=== PATIENT | female | born 1970 | race American Indian/Alaskan Native ===

== ENCOUNTER 2017-10-11 12:43 | Outpatient (CLI) | payer OTHER ==
--- NOTE | 2017-10-12 10:03 | Mammography Report ---
BILATERAL DIGITAL SCREENING MAMMOGRAM with CAD: 10/11/17 12:43:00 CLINICAL: Routine screening. COMPARISON:None available. Her last mammogram was in [place]. FINDINGS: The breasts are heterogeneously dense, which may obscure small masses. No mass, architectural distortion or suspicious calcifications. IMPRESSION: No mammographic evidence of malignancy. BI-RADS CATEGORY: 1 - - Negative RECOMMENDATION: Routine mammographic screening in one year. COMMENT: Patient follow-up letters are generated by our [employer] application.
== END 2017-10-11 12:44 | disposition home or self-care (01) ==
LOC: MAMMO 12:43
PROVIDERS: ATTEND Family Medicine
DX: Z12.31 Encounter for screening mammogram for malignant neoplasm of breast (principal)
CPT/HCPCS: 77067; G0202

== ENCOUNTER 2019-10-17 10:50 | Outpatient (CLI) | payer OTHER ==
--- NOTE | 2019-10-20 14:22 | Mammography Report ---
DIGITAL SCREENING MAMMOGRAM WITH CAD, 10/17/2019 INDICATION: Routine screening mammography. TECHNIQUE: Digital bilateral 2D mammography was obtained in the craniocaudal and mediolateral obliq ue projections. This examination was interpreted with the benefit of Computer-Aided Detection analysi s. COMPARISON: 10/14/2018 and 10/11/2017 FINDINGS: Breast Density: The breasts are heterogeneously dense, which may obscure small masses. Right asymmetries require additional imaging. No architectural distortion or suspicious calcification s of the right breast. There is no evidence of dominant mass, suspicious calcifications or architectu ral distortion in either breast. IMPRESSION: Right asymmetries requiring additional imaging. Recommend recall for right spot compressi on views and right breast ultrasound if needed. Follow up recommendation: Special View: Spot Category 0: Incomplete. Needs additional imaging evaluation and/or prior mammograms for comparison. A "normal" or negative report should not discourage follow up or biopsy of a clinically significant f inding. A written summary of these findings will be mailed to the patient. The patient will be entered into a mammography reporting system which will generate a reminder letter for the patient's next appointmen t at the appropriate interval. The [employer] recommends yearly mammograms starting at age 40 and continuing as l jeff as a woman is in good health. Breast MRI is recommended for women with an approximate 20-25% or greater lifetime risk of breast cancer, including women with a strong family history of breast or ova ang cancer or who have been treated for Hodgkin's disease. Signer Name: Dave Ayoub MD Signed: 10/20/2019 2:17 PM Workstation Name: [id number]
== END 2019-10-17 10:51 | disposition home or self-care (01) ==
LOC: MAMMO 10:50
PROVIDERS: ATTEND Family Medicine
DX: Z12.31 Encounter for screening mammogram for malignant neoplasm of breast (principal)
CPT/HCPCS: 77067

== ENCOUNTER 2021-07-01 13:31 | Emergency (ER) | payer BC, OTHER ==
[2021-07-02 04:09] LABS: Basophils % (Auto) 0.7 % (0.0-1.8); Eosinophils % (Auto) 0.5 % (0.0-4.3); Hematocrit 46.3 % (30.3-42.9); Hemoglobin 15.2 gm/dl (10.1-14.3); Lymphocytes # (Auto) 1.5 K/mm3 (1.2-5.4); Lymphocytes % (Auto) 24.2 % (13.4-35.0); Mean Corpuscular HGB Conc 33 % (30-34); Mean Corpuscular Volume 84 fl (79-97); Monocytes # (Auto) 0.5 K/mm3 (0.0-0.8); Monocytes % (Auto) 7.8 % (0.0-7.3); Platelet Count 368 K/mm3 (140-440); Red Blood Count 5.51 M/mm3 (3.65-5.03); Red Cell Distribution Width 16.2 % (13.2-15.2)
--- NOTE | 2021-07-02 04:33 | Cat Scan Report ---
CT head without contrast INDICATION : HEAD INJURY- DIZZINESS. TECHNIQUE: Axial imaging performed from the skull apex through the skull base without the use of con trast. All CT scans at this location are performed using CT dose reduction for ALARA by means of aut omated exposure control. COMPARISON: None FINDINGS: Parenchyma: No mass, stroke or hemorrhage. Ventricles: Ventricles are normal in size and appear symmetric. Soft tissues: Soft tissues including the orbits appear normal. Bones: No acute osseous abnormality. Sinuses: Sinuses and mastoid air cells are clear. IMPRESSION: No acute abnormality. Signer Name: Davion Mendoza MD Signed: 07/02/2021 4:29 AM Workstation Name: [id number]
--- NOTE | 2021-07-02 04:34 | XRay Report ---
CHEST 1 VIEW 07/02/2021 4:19 AM INDICATION / CLINICAL INFORMATION: Dizziness. COMPARISON: None available. FINDINGS: SUPPORT DEVICES: None. HEART / MEDIASTINUM: No significant abnormality. LUNGS / PLEURA: No significant pulmonary or pleural abnormality. No pneumothorax. ADDITIONAL FINDINGS: No significant additional findings. IMPRESSION: No acute abnormality. Signer Name: Davion Mendoza MD Signed: 07/02/2021 4:29 AM Workstation Name: [id number]
[2021-07-02 04:35] LABS: Alanine Aminotransferase 23 units/L (7-56); Albumin 4.5 g/dL (3.9-5); BUN/Creatinine Ratio 25; Blood Urea Nitrogen 20 mg/dL (7-17); Hemolysis Index 43
--- NOTE | 2021-07-02 04:49 | Emergency Department Report ---
ED General Adult HPI - General Chief complaint: Dizziness Stated complaint: dizziness, headache, chest pain Source: patient Mode of arrival: Ambulatory Limitations: No Limitations - History of Present Illness Initial comments: Patient is a 51-year-old -[place] female with a history of hypertension and who is currently on lisinopril HCTZ 20-25 mg daily, amlodipine 10 mg daily and furosemide 20 mg daily presents to the ED with complaint of persistent lightheadedness and a near syncopal episode intermittently for the last 2 weeks, worse in the last 2 days. Patient states that she has been taking these medications on instruction from her primary care physician and that her blood pressure had at times been so low causing her to feel lightheaded and almost having syncope. Patient states that her latest episode occurred about 3 days ago but states that in the last 2 days she has been feeling lightheaded despite taking these medications. Patient denies chest pain, seizures, syncope, dizziness, fever, chills, cough, palpitations, abdominal pain, muscle spasms, n ausea and vomiting or diarrhea and cough or headache. MD Complaint: Lightheadedness, near syncopal episode, low blood pressure -: Sudden, days(s) (2) Location: head Radiation: non-radiation Severity scale (0 -10): 0 Consistency: intermittent Improves with: none Worsens with: movement Associated Symptoms: denies other symptoms, other (Lightheadedness and near syncope). denies: confusion, chest pain, cough, diaphoresis, fever/chills, headaches, loss of appetite, malaise, nausea/vomiting, rash, seizure, shortness of breath, syncope, weakness Treatments Prior to Arrival: none - Related Data Allergies Allergy/AdvReac Type Severity Reaction Status Date / Time No Known Allergies Allergy Unverified 10/11/17 12:43 ED Review of Systems ROS: Stated complaint: dizziness, headache, chest pain Other details as noted in HPI Constitutional: malaise. denies: chills, fever Eyes: denies: eye pain, eye discharge, vision change ENT: denies: ear pain, throat pain Respiratory: denies: cough, shortness of breath, wheezing Cardiovascular: other (Near syncope). denies: chest pain, palpitations Endocrine: no symptoms reported Gastrointestinal: denies: abdominal pain, nausea, diarrhea Genitourinary: denies: urgency, dysuria, discharge Musculoskeletal: denies: back pain, joint swelling, arthralgia Skin: denies: rash, lesions Neurological: other (Lightheadedness). denies: headache, weakness, paresthesias Psychiatric: denies: anxiety, depression Hematological/Lymphatic: denies: easy bleeding, easy bruising ED Past Medical Hx - Past Medical History Previous Medical History?: Yes Hx Hypertension: Yes ED Physical Exam - General Limitations: No Limitations General appearance: alert, in no apparent distress - Head Head exam: Present: atraumatic, normocephalic, normal inspection - Eye Eye exam: Present: normal appearance, PERRL, EOMI Pupils: Present: normal accommodation - ENT ENT exam: Present: normal exam, normal orophraynx, mucous membranes moist, TM's normal bilaterally, normal external ear exam - Neck Neck exam: Present: normal inspection, full ROM - Respiratory Respiratory exam: Present: normal lung sounds bilaterally. Absent: respiratory distress, wheezes, rales, stridor, chest wall tenderness, accessory muscle use, decreased breath sounds, prolonged expiratory - Cardiovascular Cardiovascular Exam: Present: regular rate, normal rhythm, normal heart sounds. Absent: systolic murmur, diastolic murmur, rubs, gallop - GI/Abdominal GI/Abdominal exam: Present: soft, normal bowel sounds. Absent: tenderness, guarding, hyperactive bowel sounds, hypoactive bowel sounds, organomegaly - Extremities Exam Extremities exam: Present: normal inspection, full ROM, normal capillary refill - Back Exam Back exam: Present: normal inspection, full ROM. Absent: tenderness, CVA tenderness (R), CVA tenderness (L), muscle spasm, paraspinal tenderness, vertebral tenderness - Neurological Exam Neurological exam: Present: alert, oriented X3, CN II-XII intact, normal gait, reflexes normal - Psychiatric Psychiatric exam: Present: normal affect, normal mood - Skin Skin exam: Present: warm, dry, intact, normal color. Absent: rash ED Course Vital Signs 07/01/21 14:13 Temperature 98.1 F Pulse Rate 97 H Respiratory 18 Rate Blood Pressure 117/73 O2 Sat by Pulse 96 Oximetry ED Medical Decision Making - Lab Data Result diagrams: 07/02/21 03:35 07/02/21 03:35 - EKG Data EKG shows normal: sinus rhythm Rate: normal - EKG Data Interpretation: normal EKG 07/02/21 05:20 The EKG shows normal sinus rhythm with a ventricular rate of [address] or T wave abnormalities - Radiology Data Radiology results: report reviewed, image reviewed [facility] [address] [place] [address] Cat Scan Report Signed Patient: ANAIS ALVAREZ MR#: [id number] : 1970 Acct:[id number] Age/Sex: 51 / F ADM Date: 07/01/21 Loc: ED Attending Dr: Ordering Physician: CYRUS HILARIO Date of Service: 07/02/21 Procedure(s): CT head/brain wo con Accession Number(s): [id number] cc: CYRUS HILARIO CT head without contrast INDICATION : HEAD INJURY- DIZZINESS. TECHNIQUE: Axial imaging performed from the skull apex through the skull base without the use of contrast. All CT scans at this location are performed using CT dose reduction for ALARA by means of automated exposure control. COMPARISON: None FINDINGS: Parenchyma: No mass, stroke or hemorrhage. Ventricles: Ventricles are normal in size and appear symmetric. Soft tissues: Soft tissues including the orbits appear normal. Bones: No acute osseous abnormality. Sinuses: Sinuses and mastoid air cells are clear. IMPRESSION: No acute abnormality. Signer Name: Davion Mendoza MD Signed: 07/02/2021 4:29 AM Workstation Name: [id number] Transcribed By: ES Dictated By: Davion Mendoza MD Electronically Authenticated By: Dvaion Mendoza MD Signed Date/Time: 07/02/21428 DD/ 7 TD/TT: [facility] [address] [place] [address] XRay Report Signed Patient: ANAIS ALVAREZ MR#: [id number] : 1970 Acct:[id number] Age/Sex: 51 / F ADM Date: 07/01/21 Loc: ED Attending Dr: Ordering Physician: CYRUS HILARIO Date of Service: 07/02/21 Procedure(s): XR chest 1V ap Accession Number(s): [id number] cc: CYRUS HILARIO Fluoro Time In Minutes: CHEST 1 VIEW 07/02/2021 4:19 AM INDICATION / CLINICAL INFORMATION: Dizziness. COMPARISON: None available. FINDINGS: SUPPORT DEVICES: None. HEART / MEDIASTINUM: No significant abnormality. LUNGS / PLEURA: No significant pulmonary or pleural abnormality. No pneumotho rax. ADDITIONAL FINDINGS: No significant additional findings. IMPRESSION: No acute abnormality. Signer Name: Davion Mendoza MD Signed: 07/02/2021 4:29 AM Workstation Name: [id number] Transcribed By: ES Dictated By: Davion Mendoza MD Electronically Authenticated By: Davion Mendoza MD Signed Date/Time: 07/02/21428 DD/ 8 TD/TT: - Medical Decision Making This is a 51-year-old -[place] female with a history of hypertension and who is currently on lisinopril HCTZ 20-25 mg daily, amlodipine 10 mg daily and furosemide 20 mg daily presents to the ED with complaint of persistent lightheadedness and a near syncopal episode intermittently for the last 2 weeks, worse in the last 2 days. Patient states that she has been taking these medications on instruction from her primary care physician and that her blood pressure had at times been so low causing her to feel lightheaded and almost rosario ving syncope. Patient states that her latest episode occurred about 3 days ago but states that in the last 2 days she has been feeling lightheaded despite taking these medications. In the ED, patient is alert and oriented x3 and is not in any distress. The EKG shows normal sinus rhythm with a ventricular rate of [address] or T wave abnormalities. Patient is hemodynamically stable. The head CT scan without contrast showed no acute intracranial abnormalities or hemorrhage. Chest x-ray shows no acute cardiopulmonary abnormalities or pneumonitis. All lab test results were reviewed and are all nonactionable. On reevaluation, patient's orthostatic vital signs are stable. Patient was advised to stop taking all the diuretic blood pressure medications including lisinopril HCTZ 20/25 milligrams, and furosemide 20 mg tablets, and to only take half of amlodipine 10 mg tablet daily, and to follow-up with her primary care physician in 3 to 5 days for reevaluation. Patient was advised return to the ED immediately if symptoms get worse. - Differential Diagnosis Dehydration; syncope; ACS; polypharmacy; Hypertension Critical care attestation.: If time is entered above; I have spent that time in minutes in the direct care of this critically ill patient, excluding procedure time. ED Disposition Clinical Impression: Postural dizziness with near syncope, Intermittent lightheadedness, Micah ypharmacy Disposition: 01 HOME / SELF CARE / HOMELESS Is pt being admited?: No Does the pt Need Aspirin: No Condition: Stable Instructions: Near-Syncope, [id number], Syncope, [id number] Additional Instructions: All lab test results were reviewed and are all nonactionable. EKG shows normal sinus rhythm with no ST or T wave abnormalities. Chest x-ray and head CT scan without contrast were unremarkable with no acute abnormalities. Your ort hostatic vital signs were unremarkable. Therefore stopped taking all the water pills that you have been taking, and take half a tablet of amlodipine 10 mg daily, and follow-up with your primary care physician in 3 to 5 days for reevaluation. Return to the ED immediately if symptoms get worse. Referrals: [facility] [Provider Group] - 3-5 Days Time of Disposition: 04:52 Print Language: KAZAKH
[2021-07-02 05:26] VITALS: BP 145/89
--- NOTE | 2021-07-05 08:49 | Electrocardiograph Report ---
[facility] Test Date: 2021-07-02 Test Time: 05:16:36 Pat Name: ANAIS ALVAREZ Department: Room: Gender: F Nurse Instructor: BROOKE : 1970 Requested By: RYANN MCKEON Order Number: [id number] Reading MD: Theron Castillo Measurements Intervals [place] Rate: 84 P: 82 IL: 156 QRS: 37 QRSD: 77 T: 15 QT: 381 QTc: 452 Interpretive Statements Sinus rhythm Right atrial enlargement No previous ECG available for comparison Electronically Signed On 07-05-2021 8:48:50 EDT by Theron Castillo
== END 2021-07-02 05:35 | disposition home or self-care (01) ==
LOC: ED 13:31
DX: R42 Dizziness and giddiness (principal); R55 Syncope and collapse; Z79.899 Other long term (current) drug therapy; I10 Essential (primary) hypertension
CPT/HCPCS: 36415; 70450; 71045; 80053; 84484; 85025; 93005; 99284